=== PATIENT | female | born 1930 | race Hispanic/Latino ===

== ENCOUNTER 2018-09-11 15:49 | Emergency (ER) | payer MEDICARE ==
[2018-09-11] MEDS ORDERED: Sodium Chloride 0.9% 1,000 ML ONE (16:21)
[2018-09-11 16:40] LABS: ALT (SGPT) 18 U/L (8-55); AST (SGOT) 21 U/L (5-34); Albumin 3.8 g/dL (3.4-4.8); Alkaline Phosphatase 100 U/L (40-150); Anion Gap 12 mmol/L (10-20); BUN (Urea Nitrogen) 16 mg/dL (9.8-20.1); Calc. Creatinine Clearance 0 mL/min (70-130); Calcium 9.3 mg/dL (7.8-10.44); Carbon Dioxide 25 mmol/L (23-31); Chloride 101 mmol/L (98-107); Estimated GFR-MDRD 76; Glucose 100 mg/dL (83-110); Potassium 3.3 mmol/L (3.5-5.1); Protein, Total 5.8 g/dL (6.0-8.3); Sodium 135 mmol/L (136-145)
[2018-09-11 16:42] LABS: Acetaminophen Less than 6.0 mcg/mL (10.0-30.0); Alcohol Less than 10 mg/dL (Less than 10); Salicylate Less than 8.0 mg/dL (15.0-30.0)
--- NOTE | 2018-09-11 17:01 | CT ---
CT HEAD NONCONTRAST 09/11/18 HISTORY: Altered mental status. COMPARISON: 08/12/03. FINDINGS: There is no evidence of acute intracranial hemorrhage or infarct. Diffuse cortical atrophy and chroni c ischemic small vessel disease are again demonstrated. Dystrophic calcification at each basal gangli a. There is no mass effect or shift of midline structures. IMPRESSION: Chronic type findings. No acute intracranial abnormalities are demonstrated. POS: [facility]
[2018-09-11 17:05] LABS: Hemoglobin 10.4 g/dL (12.0-16.0); MDiff Complete? YES; Mean Corpuscular HGB CONC 31.8 g/dL (32.0-36.0); Mean Corpuscular Hemoglobin 27.8 pg (27.0-31.0); Mean Corpuscular Volume 87.5 fL (78.0-98.0); Mean Platelet Volume 12.4 fL (7.4-10.4); Platelet Count 63 thou/uL (130-400); RBC Distribution Width 16.2 % (11.5-14.5); Red Blood Cell (RBC) Count 3.73 mill/uL (4.20-5.40); White Blood Cell (WBC) Count 5.6 thou/uL (4.8-10.8)
[2018-09-11 17:06] LABS: Anisocytosis SLIGHT = 6-15 cells (100X) (0-5/hpf); Band 1 % (5-11); Hypochromia SLIGHT = 6-15 cells (100X) (0-5/hpf); Lymphocytes 26 % (21-51); Monocytes 12 % (0-10); Neutrophil 61 % (42-75); Platelet Morphology Comment Appears Decreased
--- NOTE | 2018-09-11 17:32 | RAD ---
CHEST ONE VIEW: 09/11/18 HISTORY: Altered mental status. COMPARISON: 08/07/17. FINDINGS: Normal cardiac silhouette. The pulmonary vessels and hilum are normal. Pleural and parenchymal change in the right lung base. Adequate aeration of the upper lungs. No pneumothorax or osseous abnormaliti es. IMPRESSION: Right sided pleural effusion with adjacent parenchymal changes. Continued surveillance is recommended . POS: [facility]
[2018-09-11 18:11] LABS: Bilirubin Small (Negative); Blood, Urine Moderate (Negative); Clarity Clear (Clear); Glucose, Urine (Dipstick) Negative (Negative); Leukocyte Negative (Negative); Nitrite Negative (Negative); Protein, Urine (Dipstick) 100 mg/dL (Neg-Trace); Specific Gravity, Urine 1.015 (1.005-1.030)
[2018-09-11 18:20] LABS: Bacteria/HPF Rare-Few HPF (None Seen); Other Microscopic Description NO; Squamous Epithelial None Seen HPF (0-3); WBC/HPF 0-3 HPF (0-3)
== END 2018-09-11 18:47 | disposition short-term general hospital (02) ==
LOC: NAV ERS 15:49
DX: I48.91 Unspecified atrial fibrillation (principal); J90 Pleural effusion, not elsewhere classified; E03.9 Hypothyroidism, unspecified; I10 Essential (primary) hypertension; Z79.899 Other long term (current) drug therapy
CPT/HCPCS: 51702; 70450; 71045; 80053; 80307; 81003; 81015; 83605; 83735; 83880; 84484; 85025; 87086; 93005; 94760; 96360; J7050

== ENCOUNTER 2018-09-17 17:26 | Inpatient (IN) | payer MEDICARE ==
[2018-09-17] MEDS ORDERED: Acetaminophen 325 MG TAB PO PRN (17:50)
[2018-09-17] MEDS ORDERED: Ondansetron ODT 4 MG TAB PO PRN (17:50)
[2018-09-17] MEDS ORDERED: Guaifenesin DM 100-10/5 ML UDCUP PO PRN (17:51)
[2018-09-17] MEDS ORDERED: Eucerin (Mineral Oil/Petrolatum,White) 30 gm Jar TOP PRN (17:51)
[2018-09-17] MEDS ORDERED: Cefepime 2 GM VIAL IVPB SCH (21:00)
[2018-09-17] MEDS ORDERED: DESMOPRESSIN 0.1 MG PO SCH (21:00)
[2018-09-17] MEDS: Cefepime 2 GM in Sodium Chloride 0.9% 100 ML IVPB SCH (21:08)
[2018-09-17] MEDS: Metoprolol Tartrate 50 MG TAB PO SCH (21:09)
[2018-09-17] MEDS: Apixaban 2.5 MG TAB PO SCH (21:10)
[2018-09-17] MEDS: guaiFENesin/DM ER PO SCH (21:11)
--- NOTE | 2018-09-18 02:48 | HP ---
CHIEF COMPLAINT: Deconditioning. HISTORY OF PRESENT ILLNESS: The patient is an 88-year-old female with a past medical history of atrial fibrillation, hypertension, hypothyroidism, chronic lymphocytic leukemia, and anemia, who was recently admitted to [facility] for weakness. She was found to be in atrial fibrillation with rapid ventricular response. The patient has been several days in the hospital trying to control her heart rate. She has been hypotensive some throughout the stay which has made treating her with medication more difficult. Yesterday, she was noted to have some shortness of breath and chest x-ray revealed pleural effusion. She was given a low dose of IV Lasix and then became hypotensive, after that needed to receive a small fluid bolus. She was also started on cefepime for possible pneumonia and said she has been in the hospital for several days, it was considered community-acquired , and she began cefepime. The patient significantly deconditioned and was in baseline confusion. I saw her shortly after arriving to [place], and she did not recognize me as her doctor and did not know where she was or the date or time. The patient denies shortness of breath and cough, though she was coughing during the exam. It has been reported that the patient has had a poor appetite during the hospital stay, but she has been enrolling [employer]. PAST MEDICAL HISTORY: 1. Hypothyroidism. 2. Atrial fibrillation. 3. Hypertension. 4. CLL. PAST SURGICAL HISTORY: 1. Tonsillectomy. 2. Hysterectomy. FAMILY HISTORY: Son has hypertension. SOCIAL HISTORY: The patient lives at home, but does have home health a couple of times a week. She has no tobacco, alcohol, or drug use. ALLERGIES: NO KNOWN DRUG ALLERGIES. MEDICATIONS: 1. Eliquis 2.5 mg p.o. b.i.d. 2. Desmopressin 0.1 mg p.o. b.i.d. 3. Levothyroxine 88 mcg p.o. daily. 4. DuoNeb q.6 hours p.r.n. shortness of breath. 5. Cefepime 2 g IV q.12 hours. 6. Metoprolol Tartrate 100 mg p.o. b.i.d. REVIEW OF SYSTEMS: GENERAL: Fever and chills. HEENT: Eyes, negative for vision changes or eye pain. Negative for sore throat or rhinorrhea. LUNGS: Negative for shortness of breath, but positive for cough. CARDIOVASCULAR: Negative for chest pain or palpitations. Positive for history of atrial fibrillation with rapid ventricular response. GI: Negative for nausea, vomiting, and diarrhea. : Negative for dysuria or polyuria. MUSCULOSKELETAL: Positive for diffuse weakness, but no pain or swelling in joints. SKIN: Negative for rashes or lesions. PSYCHIATRIC: Positive for confusion, but denies anxiety. NEURO: Negative for syncope and seizure PHYSICAL EXAMINATION: VITAL SIGNS: Temperature 97.7, pulse 75, respiratory rate 20, O2 saturation 92 % on room air, blood pressure 110/55. GENERAL: The patient is awake, alert, and oriented to person only, and in no acute distress. HEENT: Eyes, pupils are equal, round, and reactive to light and accommodation. Extraocular muscles are intact. Oropharynx and nasopharynx without erythema or exudate. NECK: Supple without lymphadenopathy, thyromegaly, or bruits. CARDIOVASCULAR: Irregularly irregular rhythm without murmurs or rubs. LUNGS: Have some scattered crackles in bilateral bases with normal effort. No retractions. ABDOMEN: Soft, nontender, and nondistended with bowel sounds present. EXTREMITIES: There is no clubbing, cyanosis, or edema. MUSCULOSKELETAL: The patient does not cooperative with strength exam. NEUROLOGIC: Cranial nerves 2 through 12 are grossly intact. Deep tendon reflexes are 2/4. PSYCHIATRIC: The patient is confused and does not remember answers to questions. Even when redirected a few seconds later, she again forgets the answers to the questions. ASSESSMENT AND PLAN: 1. Generalized deconditioning: PT, OT, and ST will be consulted for patient's weakness and confusion. 2. Hospital-acquired pneumonia: We will continue cefepime. I will check the chest x-ray in the morning. We will have oxygen as needed. She will continue DuoNebs as well. 3. Atrial fibrillation: The patient will continue Eliquis for anticoagulation and metoprolol for rate control. 4. Hypertension: The patient is on metoprolol. We will continue to monitor blood pressure closely as she has been borderline hypotensive in the past 2 to 3 days. 5. Chronic lymphocytic leukemia: The patient's cancer treatment was stopped in the hospital as there was some concern that it was causing some of the patient's symptoms. This will be restarted once the patient is finished with her skilled stay and follows up with Oncology. 6. We will check CBC and BMP tomorrow morning. Job ID: [id number] MTDRoyal
[2018-09-18] MEDS: Levothyroxine Sodium 88 MCG TAB PO SCH (05:03)
[2018-09-18 05:28] LABS: #Eosinphils 0.1 thou/uL (0.0-0.7); #Lymphocytes 2.7 thou/uL (1.20-3.40); #Monocytes 0.6 thou/uL (0.11-0.59); %Basophils 0.5 % (0.0-1.0); %Eosinophils 0.6 % (0.0-10.0); %Lymphocytes 28.4 % (21.0-51.0); %Monocytes 6.6 % (0.0-10.0); %Neutrophils 63.9 % (42.0-75.0); Anisocytosis MODERATE=16-30 cells (100X) (0-5/hpf); Burr Cells SLIGHT = 2-5 cells (100X) (0-1/hpf); Hemoglobin 9.3 g/dL (12.0-16.0); Hypochromia SLIGHT = 6-15 cells (100X) (0-5/hpf); MDiff Complete? YES; Mean Corpuscular HGB CONC 31.2 g/dL (32.0-36.0); Mean Corpuscular Hemoglobin 28.2 pg (27.0-31.0); Mean Corpuscular Volume 90.5 fL (78.0-98.0); Ovalocytes SLIGHT = 2-5 cells (100X) (0-1/hpf); Platelet Count 156 thou/uL (130-400); Platelet Morphology Comment Appears Adequate; Poikilocytosis MODERATE=16-30 cells (100X) (0-5/hpf); RBC Distribution Width 20.1 % (11.5-14.5); Red Blood Cell (RBC) Count 3.29 mill/uL (4.20-5.40); White Blood Cell (WBC) Count 9.3 thou/uL (4.8-10.8)
[2018-09-18 05:40] LABS: Anion Gap 12 mmol/L (10-20); BUN (Urea Nitrogen) 55 mg/dL (9.8-20.1); Calc. Creatinine Clearance 43 mL/min (70-130); Calcium 8.5 mg/dL (7.8-10.44); Carbon Dioxide 20 mmol/L (23-31); Chloride 111 mmol/L (98-107); Estimated GFR-MDRD 63; Glucose 104 mg/dL (83-110); Potassium 3.5 mmol/L (3.5-5.1); Sodium 139 mmol/L (136-145)
[2018-09-18] MEDS ORDERED: Sodium Chloride 0.9% 10 ML ONE ×2 (07:40→20:20)
--- NOTE | 2018-09-18 08:45 | RAD ---
SINGLE VIEW OF THE CHEST: COMPARISON: 09/11/2018. HISTORY: Cough. FINDINGS: A single view of the chest shows a normal-size cardiomediastinal silhouette. There are small to mode rate bilateral pleural effusions. A calcified granuloma projects over the right thorax. Atheroscler otic calcifications are seen in the aorta. IMPRESSION: Bilateral pleural effusions. POS: [facility]
[2018-09-18] MEDS: Cefepime 2 GM in Sodium Chloride 0.9% 100 ML IVPB SCH ×2 (09:57→20:28)
[2018-09-18] MEDS: Metoprolol Tartrate 50 MG TAB PO SCH ×2 (09:58→20:31)
[2018-09-18] MEDS: Apixaban 2.5 MG TAB PO SCH ×2 (09:59→20:31)
[2018-09-18] MEDS: guaiFENesin/DM ER PO SCH ×2 (09:59→20:31)
[2018-09-18] MEDS ORDERED: Saccharomyces boulardii 250 MG CAP PO SCH (10:45)
[2018-09-18 10:58] LABS: Bilirubin Small (Negative); Blood, Urine Large (Negative); Clarity Cloudy (Clear); Glucose, Urine (Dipstick) Negative (Negative); Leukocyte Large (Negative); Nitrite Negative (Negative); Protein, Urine (Dipstick) 100 mg/dL (Neg-Trace); Urobilinogen 0.2 mg/dL (0.2-1.0)
--- NOTE | 2018-09-18 11:29 | PRG ---
DATE OF SERVICE: 09/18/2018 SUBJECTIVE: The patient is an 88-year-old female, who was transferred to [place] for rehabilitation following a hospitalization for AFib with RVR. The patient was significantly confused last night, but this morning, is able to recognize me. She states she rested well overnight. She was able to eat a little bit of breakfast , but her appetite is still poor. Nursing notes that her desmopressin was not on formulary and we need to try to get the family to bring in her medication. Per report, the patient's daughter is concerned about depression in her mom and is asking about starting a medication. OBJECTIVE: VITAL SIGNS: Temperature 97.8, pulse 94, respiration rate 20, O2 saturations 94% on room air, and blood pressure 112/68. GENERAL: The patient is awake, alert, and oriented to person, but not to place or time, and is in no acute distress. CARDIOVASCULAR: Irregularly irregular rhythm without murmurs. LUNGS: Clear to auscultation bilaterally without wheezing or rhonchi. ABDOMEN: Soft, nontender, and nondistended, with bowel sounds present. EXTREMITIES: There is no clubbing, cyanosis, or edema. PSYCHIATRIC: The patient does have some mild confusion today, though is a little bit clear than she was last night. LABORATORY DATA: 1. CBC: WBCs 9.3, hemoglobin 9.3, hematocrit 29.8, platelet count 156. 2. BMP: Sodium 139, potassium 3.5, chloride 111, bicarb 20, BUN 55, creatinine 0.85, glucose 104, calcium 8.5. 3. Chest x-ray demonstrates bilateral pleural effusions. ASSESSMENT AND PLAN: 1. Generalized deconditioning: The patient has been seen by Speech Therapy this morning and will be seen by PT and OT as well. 2. Atrial fibrillation with RVR: We will continue the metoprolol and monitor the patient's blood pressure and pulse. 3. Pleural effusions: The patient's blood pressure had not tolerated doses of Lasix when she was at the [facility]. Right now, her O2 saturations are stable and she is asymptomatic from these, so we will continue to monitor. 4. CLL: We will monitor blood counts periodically through this stay. The patient is not currently on any treatment as it was stopped by Oncology in the hospital until she follows up with them. 5. Hospital acquired pneumonia: We will continue cefepime. 6. Diarrhea: Nursing staff reports the patient has had 2 loose stools overnight. She has been on antibiotics and we will send stool for Clostridium difficile. We will also check a urinalysis as nursing has noted changes in her urine as well. 7. Possible depression: at this time the patient is still very confused. I would like to wait to start an antidepressant or anything sedation which could worsen her confusion. I have discussed this with her daughter, Luci, and she voiced understanding. Job ID: [id number] [facility]
[2018-09-18 11:36] LABS: Urine Culture Reflex No No
[2018-09-18 11:41] LABS: Bacteria/HPF Rare-Few HPF (None Seen); Other Microscopic Description NO; RBC/HPF GREATER THAN 50-TNTC HPF (0-3); Squamous Epithelial 0-3 HPF (0-3)
[2018-09-18] MEDS ORDERED: DESMOPRESSIN 0.1 MG PO SCH (13:45)
[2018-09-18] MEDS: DESMOPRESSIN 0.1 MG PO SCH (20:32)
[2018-09-19] MEDS: Levothyroxine Sodium 88 MCG TAB PO SCH (05:55)
[2018-09-19] MEDS: Cefepime 2 GM in Sodium Chloride 0.9% 100 ML IVPB SCH ×2 (09:09→20:52)
[2018-09-19] MEDS: Metoprolol Tartrate 50 MG TAB PO SCH ×2 (09:25→20:53)
[2018-09-19] MEDS: guaiFENesin/DM ER PO SCH ×2 (09:25→20:53)
[2018-09-19] MEDS: Apixaban 2.5 MG TAB PO SCH ×2 (09:26→20:53)
[2018-09-19] MEDS: Saccharomyces boulardii 250 MG CAP PO SCH (09:32)
[2018-09-19] MEDS: DESMOPRESSIN 0.1 MG PO SCH ×3 (09:35→20:51)
--- NOTE | 2018-09-19 16:18 | PRG ---
DATE OF SERVICE: 09/19/2018 SUBJECTIVE: The patient is an 88-year-old female, who was transferred to [place] for rehabilitation following a hospital stay for atrial fibrillation with RVR. The patient has continued to be confused and often thinks that she is anywhere other than a hospital. She has been asking for family members who have according to the daughter and [id number], who were at the bedside. The patient was able to recognize me today, but is still only oriented to person. OBJECTIVE: VITAL SIGNS: Temperature 97.6, pulse 87, respiratory rate 18, O2 saturation 95% on room air, and blood pressure 164/67. GENERAL: The patient is awake, alert, and oriented. No acute distress. CARDIOVASCULAR: Irregularly irregular rhythm without murmurs, gallops, or rubs. LUNGS: Clear to auscultation bilaterally without wheezing or rhonchi. ABDOMEN: Soft, nontender, and nondistended with bowel sounds present. EXTREMITIES: There is no clubbing, cyanosis, or edema. SKIN: The patient has scattered bruising for multiple blood draws over her hospitalization in the past week. PSYCHIATRIC: The patient is alert and oriented to person only, but pleasantly confused. LABORATORY DATA: 1. Urinalysis yesterday was significant for protein of 100, blood large, ketones 15, bilirubin small, leukocyte esterase large, wbc's 11 to 20, and rare to few bacteria. 2. Urine culture shows no growth to date. ASSESSMENT AND PLAN: 1. Generalized deconditioning: The patient will continue therapy to help improve strength. 2. Atrial fibrillation with rapid ventricular response: The patient is currently rate controlled with metoprolol. Blood pressures were stable. We will continue to monitor. 3. Confusion: I think the patient likely has some dementia and had a significant worsening of her baseline with a recent hospitalization. I have discussed this with the family in detail and have discussed that it may take some time for her to show cognitive improvement, and we may not get back to her baseline prior to the hospital stay. They both voiced their understanding of this. At bedside was her daughter, Stephanie, and I believe her [id number], Chelsea. 4. Pleural effusion: O2 saturations are stable and the patient is asymptomatic. We will continue to monitor these. 5. Chronic lymphoid leukemia: I will repeat labs to monitor her blood count. 6. Hospital-acquired pneumonia: The patient appears to be resolved from a pneumonia standpoint. We will discontinue her cefepime at this time. 7. Diarrhea: No stool study was obtained. The patient's diarrhea and loose stools have stopped. We will monitor to see if she has additional loose stools and if so, we will send for Clostridium difficile as she has been on antibiotics. 8. Decreased appetite: We will check BMP to monitor her electrolytes and kidney function with her decreased appetite. We talked about the importance of family encouraging her to eat when they are eat and drink, and I have discussed this with staff as well. Job ID: [id number]
[2018-09-19] MEDS ORDERED: Sodium Chloride 0.9% 10 ML ONE (20:45)
[2018-09-20] MEDS: Levothyroxine Sodium 88 MCG TAB PO SCH (05:20)
[2018-09-20 05:36] LABS: #Basophils 0.1 thou/uL (0.0-0.2); #Eosinphils 0.1 thou/uL (0.0-0.7); #Lymphocytes 2.2 thou/uL (1.20-3.40); #Monocytes 0.6 thou/uL (0.11-0.59); #Neutrophils 5.2 thou/uL (1.40-6.50); %Basophils 0.7 % (0.0-1.0); %Eosinophils 0.8 % (0.0-10.0); %Lymphocytes 26.9 % (21.0-51.0); %Monocytes 7.1 % (0.0-10.0); %Neutrophils 64.4 % (42.0-75.0); Anisocytosis SLIGHT = 6-15 cells (100X) (0-5/hpf); Crenated RBC SLIGHT = 1-5 cells (100X) (None Seen); Hemoglobin 9.7 g/dL (12.0-16.0); MDiff Complete? YES; Mean Corpuscular HGB CONC 31.5 g/dL (32.0-36.0); Mean Corpuscular Hemoglobin 29.1 pg (27.0-31.0); Mean Corpuscular Volume 92.5 fL (78.0-98.0); Mean Platelet Volume 11.8 fL (7.4-10.4); Ovalocytes SLIGHT = 2-5 cells (100X) (0-1/hpf); Platelet Count 141 thou/uL (130-400); Platelet Morphology Comment Appears Adequate; RBC Distribution Width 23.4 % (11.5-14.5); Red Blood Cell (RBC) Count 3.34 mill/uL (4.20-5.40); White Blood Cell (WBC) Count 8.1 thou/uL (4.8-10.8)
[2018-09-20 05:51] LABS: Anion Gap 13 mmol/L (10-20); BUN (Urea Nitrogen) 50 mg/dL (9.8-20.1); Calc. Creatinine Clearance 0 mL/min (70-130); Calcium 8.6 mg/dL (7.8-10.44); Carbon Dioxide 17 mmol/L (23-31); Chloride 114 mmol/L (98-107); Estimated GFR-MDRD 70; Glucose 107 mg/dL (83-110); Potassium 3.3 mmol/L (3.5-5.1); Sodium 141 mmol/L (136-145)
[2018-09-20] MEDS: Cefepime 2 GM in Sodium Chloride 0.9% 100 ML IVPB SCH (08:10)
[2018-09-20] MEDS: Apixaban 2.5 MG TAB PO SCH ×2 (08:13→20:16)
[2018-09-20] MEDS: guaiFENesin/DM ER PO SCH ×2 (08:13→20:15)
[2018-09-20] MEDS: Metoprolol Tartrate 50 MG TAB PO SCH ×2 (08:14→20:16)
[2018-09-20] MEDS: DESMOPRESSIN 0.1 MG PO SCH ×2 (09:45→20:15)
[2018-09-20] MEDS: Saccharomyces boulardii 250 MG CAP PO SCH (09:45)
[2018-09-20] MEDS ORDERED: Potassium Chloride 20 MEQ TAB PO SCH (19:45)
[2018-09-21] MEDS: Levothyroxine Sodium 88 MCG TAB PO SCH (05:58)
[2018-09-21] MEDS: guaiFENesin/DM ER PO SCH ×2 (09:25→21:21)
[2018-09-21] MEDS: Saccharomyces boulardii 250 MG CAP PO SCH (09:25)
[2018-09-21] MEDS: Apixaban 2.5 MG TAB PO SCH ×2 (09:25→21:20)
[2018-09-21] MEDS: Metoprolol Tartrate 50 MG TAB PO SCH ×2 (09:25→21:20)
[2018-09-21] MEDS: DESMOPRESSIN 0.1 MG PO SCH ×2 (09:29→21:21)
--- NOTE | 2018-09-21 15:21 | PRG ---
DATE OF SERVICE: 09/21/2018 SUBJECTIVE: The patient is an 88-year-old female, who is at [facility] for rehabilitation following a hospitalization for atrial fibrillation. The patient is lying in bed, resting. She does open her eyes and recognizes me. Her lunch tray was being brought in when I came into the room. I asked her she wanted to eat and she said no. She does note that her appetite is poor and staff notes that she did not eat much for breakfast. OBJECTIVE: VITAL SIGNS: Temperature 97.4, pulse 78, respiratory rate 16, O2 saturation 94% on room air, and blood pressure 112/58. GENERAL: The patient is somewhat sleepy, but is easily arousable and is oriented to person. She is in no acute distress. CARDIOVASCULAR: The patient has an irregularly irregular rhythm without murmurs or rubs. LUNGS: Clear to auscultation bilaterally without wheezing or rhonchi. ABDOMEN: Soft, nontender, and nondistended with bowel sounds present. EXTREMITIES: There is no clubbing, cyanosis, or edema. LABORATORY DATA: 1. CBC: WBC is 8.1, hemoglobin 9.7, hematocrit 30.9, and platelet count 141. 2. BMP: Sodium 141, potassium 3.3, chloride 114, bicarbonate 17, BUN 50, creatinine 0.78, glucose 107, and calcium 8.6. 3. Procalcitonin 0.08. ASSESSMENT AND PLAN: 1. Generalized deconditioning: The patient's poor p.o. intake is likely contributing to her deconditioning. I still would like to try to avoid anything that could affect the patient's mentation, so we will try to start Megace at this time. She will continue therapy and I spoke with staff to try to help increase her to eat, and I do believe she will need encouragement and somebody at bedside encouraging her to eat. 2. Atrial fibrillation: The patient is currently rate controlled with metoprolol. Her blood pressures have stabilized. 3. Confusion: I do believe that lot of her confusion is due to dementia and some of them can be post-hospital delirium. We will continue to reorient as needed. 4. Pleural effusion: Oxygen saturations are stable at this time and the patient remains asymptomatic. 5. Chronic lymphoid leukemia: Blood counts are stable at this time. The patient is not currently receiving treatment as recommended by Oncology until she becomes strong enough and gets out of her skilled stay. 6. Hospital-acquired pneumonia: The patient's procalcitonin is now back to normal. We will discontinue her cefepime. 7. Hypokalemia: We are giving oral potassium to replace the potassium. We will recheck in the morning. Job ID: [id number]
[2018-09-21] MEDS ORDERED: Megestrol Acetate 400 MG/10 ML UDCUP PO SCH (18:00)
[2018-09-22] MEDS: Levothyroxine Sodium 88 MCG TAB PO SCH (05:33)
[2018-09-22 05:50] LABS: Anion Gap 11 mmol/L (10-20); BUN (Urea Nitrogen) 43 mg/dL (9.8-20.1); Calc. Creatinine Clearance 47 mL/min (70-130); Calcium 8.3 mg/dL (7.8-10.44); Carbon Dioxide 18 mmol/L (23-31); Chloride 115 mmol/L (98-107); Estimated GFR-MDRD 71; Glucose 87 mg/dL (83-110); Potassium 3.3 mmol/L (3.5-5.1); Sodium 141 mmol/L (136-145)
[2018-09-22] MEDS: Megestrol Acetate 400 MG/10 ML UDCUP PO SCH (09:06)
[2018-09-22] MEDS: Apixaban 2.5 MG TAB PO SCH ×2 (09:06→20:55)
[2018-09-22] MEDS: Saccharomyces boulardii 250 MG CAP PO SCH (09:06)
[2018-09-22] MEDS: DESMOPRESSIN 0.1 MG PO SCH ×2 (09:06→20:54)
[2018-09-22] MEDS: Citalopram 10 MG TAB PO SCH (09:06)
[2018-09-22] MEDS: Loratadine 10 MG TAB PO PRN (09:06)
[2018-09-22] MEDS: guaiFENesin/DM ER PO SCH ×2 (09:06→20:55)
[2018-09-22] MEDS: Metoprolol Tartrate 50 MG TAB PO SCH ×2 (09:06→20:55)
--- NOTE | 2018-09-22 09:44 | PRG ---
DATE OF SERVICE: 09/22/2018 SUBJECTIVE: The patient is an 88-year-old female, who is at [facility] for rehabilitation following a hospital stay for AFib with RVR. Megace was added yesterday, but she has not yet received a dose. It is due to start this morning. Overnight, the patient had systolic blood pressures in the 90s, so her nighttime dose of metoprolol was held. This morning, the patient is awake and alert, but still disoriented to person. She does state that she is hungry and she is sitting up eating breakfast during the exam. OBJECTIVE: VITAL SIGNS: Temperature 97.7, pulse 90, respiratory rate 16, O2 saturation 100% on room air, blood pressure 126/62. GENERAL: The patient is awake, alert, oriented to person, in no acute distress. CARDIOVASCULAR: Irregularly irregular rhythm without murmurs, gallops, or rubs. LUNGS: Clear to auscultation bilaterally without wheezing or rhonchi. ABDOMEN: Soft, nontender, nondistended with bowel sounds present. EXTREMITIES: There is no clubbing, cyanosis, or edema. NEUROLOGIC: Cranial nerves 2 through 12 are grossly intact with deep tendon reflexes 2/4. LABORATORY DATA: BMP: Sodium 141, potassium 3.3, chloride 115, bicarbonate 18, BUN 43, creatinine 0.77, glucose 87, and calcium 8.3. ASSESSMENT AND PLAN: 1. Generalized deconditioning: The patient will continue therapy and now I will try to assess the patient with therapy stat to see how she is progressing. 2. Decreased appetite: Megace was added yesterday and she will receive her first dose this morning. She is sitting up eating breakfast currently. 3. Hypokalemia: Potassium is 3.3 this morning. We will again replace the potassium and add a magnesium level on as well. 4. Atrial fibrillation: The patient's rate is currently controlled despite her nighttime metoprolol dose is being held. We will continue to monitor for this. She should receive her morning metoprolol. 5. Chronic lymphocytic leukemia. Blood counts have been stable and we will continue to monitor this periodically. 6. Dementia versus hospital delirium: As the patient does have confusion at baseline, I suspect she has some underlying dementia that has worsened with recent hospital stay. We will continue to monitor for clearing of mentation. Job ID: [id number]
[2018-09-23] MEDS: Levothyroxine Sodium 88 MCG TAB PO SCH (05:14)
[2018-09-23 05:56] LABS: Anion Gap 12 mmol/L (10-20); BUN (Urea Nitrogen) 41 mg/dL (9.8-20.1); Calc. Creatinine Clearance 45 mL/min (70-130); Calcium 8.5 mg/dL (7.8-10.44); Carbon Dioxide 18 mmol/L (23-31); Chloride 115 mmol/L (98-107); Estimated GFR-MDRD 68; Glucose 81 mg/dL (83-110); Potassium 3.1 mmol/L (3.5-5.1); Sodium 142 mmol/L (136-145)
[2018-09-23] MEDS: guaiFENesin/DM ER PO SCH ×3 (09:00→20:44)
[2018-09-23] MEDS: Megestrol Acetate 400 MG/10 ML UDCUP PO SCH (09:05)
[2018-09-23] MEDS: Apixaban 2.5 MG TAB PO SCH ×2 (09:06→20:43)
[2018-09-23] MEDS: Citalopram 10 MG TAB PO SCH (09:07)
[2018-09-23] MEDS: Metoprolol Tartrate 50 MG TAB PO SCH ×2 (09:07→20:43)
[2018-09-23] MEDS: DESMOPRESSIN 0.1 MG PO SCH ×2 (09:10→20:43)
[2018-09-23] MEDS: Saccharomyces boulardii 250 MG CAP PO SCH (09:11)
[2018-09-23] MEDS ORDERED: Potassium Chloride 20 MEQ TAB PO SCH (13:45)
--- NOTE | 2018-09-23 14:54 | PRG ---
DATE OF SERVICE: 09/23/2018 SUBJECTIVE: The patient is an 88-year-old female, who is at [facility] for rehabilitation following a hospital stay for AFib with RVR. The patient reportedly did eat better yesterday since starting on Megace. This morning, she remains confused, does not know where she is. Nursing has no concerns this morning. OBJECTIVE: VITAL SIGNS: Temperature 97.9, pulse 92, respiratory rate 18, O2 saturation 97% on room air, blood pressure 128/58. GENERAL: The patient is awake, in no acute distress. CARDIOVASCULAR: Irregularly irregular rhythm without murmurs or rubs. LUNGS: Clear to auscultation bilaterally without wheezing or rhonchi. ABDOMEN: Soft, nontender, nondistended with bowel sounds present. EXTREMITIES: There is no clubbing, cyanosis, or edema. PSYCHIATRIC: The patient is oriented only to person. LABORATORY DATA: BMP: Sodium 142, potassium 3.1, chloride 115, bicarb 18, BUN 41, creatinine 0.80, glucose 81, calcium 8.5, magnesium 2.0. ASSESSMENT AND PLAN: 1. Generalized deconditioning: The patient will continue working with therapy. 2. Poor appetite: Megace seems to be helping at least when she received it yesterday. We will continue to monitor her p.o. intake and encourage IV fluids as well. 3. Hypokalemia. The patient's potassium went down a little bit more this morning. We will again replace potassium daily. Her magnesium level was normal. 4. Atrial fibrillation: The patient's rate is controlled. We have hold her metoprolol dose last night due to hypotension. I have now added holding parameters to this. 5. Chronic lymphocytic leukemia. Blood counts have been stable and we will monitor periodically. 6. Dementia: I do believe the patient's confusion is due to dementia. I have discussed with nursing staff and they have not seen a significant improvement in her mentation. We will continue to reorient as needed. 7. Depression: SSRI was started yesterday and we will monitor her mood. Job ID: [id number] MTDD
[2018-09-24 05:41] LABS: Anion Gap 12 mmol/L (10-20); BUN (Urea Nitrogen) 41 mg/dL (9.8-20.1); Calc. Creatinine Clearance 45 mL/min (70-130); Calcium 8.3 mg/dL (7.8-10.44); Carbon Dioxide 17 mmol/L (23-31); Chloride 117 mmol/L (98-107); Estimated GFR-MDRD 68; Glucose 91 mg/dL (83-110); Potassium 3.5 mmol/L (3.5-5.1); Sodium 142 mmol/L (136-145)
[2018-09-24] MEDS: Levothyroxine Sodium 88 MCG TAB PO SCH (05:50)
[2018-09-24] MEDS: guaiFENesin/DM ER PO SCH ×2 (08:22→21:24)
[2018-09-24] MEDS: Megestrol Acetate 400 MG/10 ML UDCUP PO SCH (08:23)
[2018-09-24] MEDS: Metoprolol Tartrate 50 MG TAB PO SCH ×2 (08:23→21:24)
[2018-09-24] MEDS: Citalopram 10 MG TAB PO SCH (08:24)
[2018-09-24] MEDS: Potassium Chloride 20 MEQ TAB PO SCH (08:25)
[2018-09-24] MEDS: Apixaban 2.5 MG TAB PO SCH ×2 (08:26→21:22)
[2018-09-24] MEDS: Saccharomyces boulardii 250 MG CAP PO SCH (08:27)
[2018-09-24] MEDS: DESMOPRESSIN 0.1 MG PO SCH ×2 (08:27→21:52)
--- NOTE | 2018-09-24 09:38 | PRG ---
DATE OF SERVICE: 09/24/2018 SUBJECTIVE: The patient is an 88-year-old female, who is at [facility] for rehabilitation following a hospitalization for atrial fibrillation with RVR. The patient is sitting up in a chair this morning, awake and alert and eating a cracker. She denies any complaints. Nursing has no concerns overnight. OBJECTIVE: VITAL SIGNS: Temperature 97.8, pulse 88, respiratory rate 18, O2 saturation 93% on room air, and blood pressure 121/66. GENERAL: The patient is awake and in no acute distress. CARDIOVASCULAR: Irregularly irregular rhythm without murmurs, gallops, or rubs. LUNGS: Clear to ausculation bilaterally without wheezing or rhonchi. ABDOMEN: Soft, nontender, and nondistended with bowel sounds present. EXTREMITIES: No clubbing, cyanosis, or edema. PSYCHIATRIC: The patient is alert and oriented to person only. She does not recognize me as not able to know that I am a doctor and does not know where she is or what year it is. LABORATORY DATA: BNP: Sodium 142, potassium 3.5, chloride 117, bicarb 17, BUN 41, creatinine 0.80, glucose 91, calcium 8.3. ASSESSMENT AND PLAN: 1. Generalized deconditioning: The patient will continue therapy. She does maneuver just around her room with a walker. 2. Atrial fibrillation: The patient is rate controlled. She will continue metoprolol. 3. Poor appetite: The patient seems to be eating a little bit better in the past couple of days. 4. Hypokalemia: Potassium has improved this morning. We will continue daily potassium. 5. Chronic lymphocytic leukemia: Blood counts have been stable and we will repeat these in the next few days. 6. Dementia: We will continue to reorient the patient as needed. I have discussed making sure that the lights are on and the blinds are open during the day. I would like her to stay in a chair most of the day and not be sleeping to try to help with her orientation. 7. Depression: She continues on her SSRI. Job ID: [id number]
[2018-09-25] MEDS: Levothyroxine Sodium 88 MCG TAB PO SCH (05:34)
[2018-09-25] MEDS: DESMOPRESSIN 0.1 MG PO SCH ×2 (09:04→21:31)
[2018-09-25] MEDS: Saccharomyces boulardii 250 MG CAP PO SCH (09:04)
[2018-09-25] MEDS: Citalopram 10 MG TAB PO SCH (09:04)
[2018-09-25] MEDS: Megestrol Acetate 400 MG/10 ML UDCUP PO SCH (09:04)
[2018-09-25] MEDS: Potassium Chloride 20 MEQ TAB PO SCH (09:04)
[2018-09-25] MEDS: Metoprolol Tartrate 50 MG TAB PO SCH ×2 (09:04→21:30)
[2018-09-25] MEDS: Apixaban 2.5 MG TAB PO SCH ×2 (09:04→21:30)
[2018-09-25] MEDS: Loratadine 10 MG TAB PO PRN (09:04)
[2018-09-25] MEDS: guaiFENesin/DM ER PO SCH ×3 (09:05→21:30)
--- NOTE | 2018-09-25 11:06 | PRG ---
DATE OF SERVICE: 09/25/2018 SUBJECTIVE: The patient is an 88-year-old female, who is at [place] for rehabilitation. Nursing staff reports that the patient has had very poor p.o. intake despite trying medication for her appetite. They also note that she is occasionally refusing to get out of bed and she does not wish to go and work with physical therapy. They also note that she is incontinent of stool. OBJECTIVE: VITAL SIGNS: Temperature 97.9, pulse 85, respiratory rate 20, O2 saturation 95% on room air, and blood pressure 116/57. GENERAL: The patient is resting comfortably, in no acute distress. CARDIOVASCULAR: Irregularly irregular rhythm without murmurs, gallops, or rubs. LUNGS: Clear to auscultation bilaterally without wheezing or rhonchi. ABDOMEN: Soft, nontender, nondistended. Bowel sounds present. EXTREMITIES: There is no clubbing, cyanosis, or edema. PSYCHIATRIC: The patient is oriented only to person. She told me that Seymour Rooney is the president and said it is in the 1980s. ASSESSMENT AND PLAN: 1. Generalized deconditioning: We will try to coordinate with Physical Therapy to see how the patient is doing and if she is still progressing. 2. Atrial fibrillation: The patient remains rate controlled on her metoprolol. 3. Poor appetite: Her appetite seems to wax and wane, but overall she is having a very little intake. 4. Hypokalemia: We will continue to monitor potassium. 5. Chronic lymphocytic leukemia: Blood counts have been stable. We will repeat a CBC on Friday. 6. Dementia: I have had a long discussion with the patient's daughter, Luci, this morning regarding her progress and our concerns that she is not eating very well and she does not appear to be significantly improving over the past week. The patient's daughter states that she has noticed an improvement in her mentation from between her time in [place] versus in [place]. She understands that she is not eating very much. We discussed that if she continues to not eat very much, we may have to consider hospice, but she does not appear ready for that decision at this time. We discussed that if the patient stops progressing with therapy, we will need to discharge the patient home and I do not feel that the patient is safe to go home by herself, so we will need 24-hour care. I have spoken with the caser in, [place], about helping the family with different resources for sitters and will probably be arranging home health for her on discharge. I was able to speak with OT who said they are seeing some improvement. We will continue to monitor her progress. The patient did refuse to work with therapy this afternoon. 7. Depression: She continues on an SSRI. Job ID: [id number] MTDD
[2018-09-26] MEDS: Levothyroxine Sodium 88 MCG TAB PO SCH (05:40)
[2018-09-26] MEDS: Megestrol Acetate 400 MG/10 ML UDCUP PO SCH (08:31)
[2018-09-26] MEDS: DESMOPRESSIN 0.1 MG PO SCH ×2 (08:31→21:36)
[2018-09-26] MEDS: Potassium Chloride 20 MEQ TAB PO SCH (08:31)
[2018-09-26] MEDS: guaiFENesin/DM ER PO SCH (08:31)
[2018-09-26] MEDS: Apixaban 2.5 MG TAB PO SCH ×2 (08:31→21:37)
[2018-09-26] MEDS: Citalopram 10 MG TAB PO SCH (08:32)
[2018-09-26] MEDS: Saccharomyces boulardii 250 MG CAP PO SCH (08:32)
[2018-09-26] MEDS: Metoprolol Tartrate 50 MG TAB PO SCH ×2 (08:32→21:36)
[2018-09-27] MEDS: Levothyroxine Sodium 88 MCG TAB PO SCH (05:42)
[2018-09-27] MEDS: Metoprolol Tartrate 50 MG TAB PO SCH ×2 (08:47→21:33)
[2018-09-27] MEDS: Apixaban 2.5 MG TAB PO SCH ×2 (08:47→21:32)
[2018-09-27] MEDS: Potassium Chloride 20 MEQ TAB PO SCH (08:47)
[2018-09-27] MEDS: DESMOPRESSIN 0.1 MG PO SCH ×2 (08:47→21:33)
[2018-09-27] MEDS: Megestrol Acetate 400 MG/10 ML UDCUP PO SCH (08:47)
[2018-09-27] MEDS: Citalopram 10 MG TAB PO SCH (08:47)
[2018-09-27] MEDS ORDERED: Loperamide HCl 2 MG CAP PO PRN (17:20)
--- NOTE | 2018-09-27 17:50 | PRG ---
DATE OF SERVICE: 09/27/2018 SUBJECTIVE: The patient is an 88-year-old female, who is at [place] for rehabilitation following a hospital stay for atrial fibrillation with RVR. The patient is sitting up in the chair this morning when asking to lie back down in bed. She reports she slept most of the day yesterday and all night long. She is only eating about 25% of her total food for the day. She is having a couple of loose stools that seem to be more consistent with kind of Ensure-induced diarrhea. She has had no signs of infection. No fever, chills, abdominal pain. OBJECTIVE: VITAL SIGNS: Temp 97.1, pulse 99, respiratory rate 18, O2 saturation 96% on room air, blood pressure 133/60. GENERAL: The patient is awake, alert, oriented to person only, and in no acute distress. CARDIOVASCULAR: Irregularly irregular rhythm without murmurs, gallops, or rubs. LUNGS: Clear to auscultation bilaterally without wheezing or rhonchi. ABDOMEN: Soft, nontender, nondistended with bowel sounds present. EXTREMITIES: There is no clubbing, cyanosis, or edema. Psychiatric: The patient is still confused. She does not knew where she is, who I am, why she is in the hospital. ASSESSMENT AND PLAN: 1. Generalized deconditioning: The patient will continue therapy. She has been approved for another week for insurance. We will monitor her this week to see how much progress she makes. I have spoken with the patient's daughter on Friday regarding her being able to return home by herself and she will likely need 24- hour care. 2. Atrial fibrillation: The patient remains rate controlled. Her nighttime dose of metoprolol has been held the past several days, because of borderline low blood pressures. We will continue to monitor this. 3. CLL: I will repeat a CBC and BMP tomorrow morning. She is not currently on treatment as this was stopped during a recent hospitalization. 4. Dementia: The patient's mentation appears to be at her new baseline. Reportedly, she has more in-depth conversations with the family in the afternoons. Job ID: [id number] [facility]
[2018-09-27 18:05] VITALS: BMI 19.5
[2018-09-28 06:09] LABS: Anion Gap 10 mmol/L (10-20); BUN (Urea Nitrogen) 36 mg/dL (9.8-20.1); Calc. Creatinine Clearance 44 mL/min (70-130); Calcium 8.3 mg/dL (7.8-10.44); Carbon Dioxide 16 mmol/L (23-31); Chloride 119 mmol/L (98-107); Estimated GFR-MDRD 73; Glucose 83 mg/dL (83-110); Potassium 4.2 mmol/L (3.5-5.1); Sodium 141 mmol/L (136-145)
[2018-09-28 06:17] LABS: Mean Corpuscular HGB CONC 29.3 g/dL (32.0-36.0); Mean Corpuscular Hemoglobin 28.4 pg (27.0-31.0); Mean Corpuscular Volume 97.1 fL (78.0-98.0); Mean Platelet Volume 9.7 fL (7.4-10.4); Platelet Count 100 thou/uL (130-400); RBC Distribution Width 22.4 % (11.5-14.5); White Blood Cell (WBC) Count 6.8 thou/uL (4.8-10.8)
[2018-09-28] MEDS: Levothyroxine Sodium 88 MCG TAB PO SCH (06:17)
[2018-09-28 06:19] LABS: Anisocytosis SLIGHT = 6-15 cells (100X) (0-5/hpf); Hypochromia SLIGHT = 6-15 cells (100X) (0-5/hpf); Lymphocytes 20 % (21-51); MDiff Complete? YES; Monocytes 7 % (0-10); Neutrophil 73 % (42-75); Platelet Morphology Comment Appears Adequate
[2018-09-28] MEDS: DESMOPRESSIN 0.1 MG PO SCH ×2 (08:37→20:51)
[2018-09-28] MEDS: Megestrol Acetate 400 MG/10 ML UDCUP PO SCH (08:38)
[2018-09-28] MEDS: Metoprolol Tartrate 50 MG TAB PO SCH ×2 (08:40→20:50)
[2018-09-28] MEDS: Apixaban 2.5 MG TAB PO SCH ×2 (08:40→20:50)
[2018-09-28] MEDS: Citalopram 10 MG TAB PO SCH (08:40)
[2018-09-28] MEDS: Potassium Chloride 20 MEQ TAB PO SCH (08:41)
--- NOTE | 2018-09-28 10:01 | PRG ---
DATE OF SERVICE: 09/28/2018 SUBJECTIVE: The patient is an 88-year-old female who is at [place] for rehabilitation following a prolonged hospital stay. The patient is sitting up in a chair and is eating some of her breakfast. It appears she is eating part of a grapefruit, about a quarter of a piece of toast, and some of her sausage. The patient's daughter states she is trying to get her to take her medications and this is a slow process. This morning, the patient does recognize me and was able to call me by name. OBJECTIVE: VITAL SIGNS: Temperature 97.5, pulse 98, respiration rate 18, O2 saturation 95% on room air, and blood pressure 116/68. GENERAL: The patient is awake, alert, oriented to person, and in no acute distress. CARDIOVASCULAR: Irregularly irregular rhythm without murmurs or rubs. LUNGS: Clear to auscultation bilaterally without wheezing or rhonchi. ABDOMEN: Soft, nontender, and nondistended with bowel sounds present. EXTREMITIES: There is no clubbing, cyanosis, or edema. LABORATORY DATA: CBC: WBC 6.8, hemoglobin 10.0, hematocrit 34.0, and platelet count 100. BMP: Sodium 141, potassium 4.2, chloride 119, bicarb 16, BUN 36, creatinine 0.75, glucose 83, and calcium 8.3. ASSESSMENT AND PLAN: 1. Generalized deconditioning: The patient will continue therapy this week. We are all monitoring to see improvement in both her mentation and her strength. 2. Atrial fibrillation: The patient is currently rate controlled with her metoprolol. 3. Chronic lymphocytic leukemia: The patient's hemoglobin is stable. Platelets have decreased and we will monitor this. 4. Hypokalemia: The patient's potassium is improved with her daily potassium. 5. Poor appetite: I will continue to monitor this. She is on Megace. 6. Depression: The patient will continue citalopram. Job ID: [id number]
[2018-09-29] MEDS: Levothyroxine Sodium 88 MCG TAB PO SCH (06:14)
[2018-09-29] MEDS: Metoprolol Tartrate 50 MG TAB PO SCH ×2 (08:41→21:13)
[2018-09-29] MEDS: Citalopram 10 MG TAB PO SCH (08:41)
[2018-09-29] MEDS: Megestrol Acetate 400 MG/10 ML UDCUP PO SCH (08:41)
[2018-09-29] MEDS: Apixaban 2.5 MG TAB PO SCH ×2 (08:41→21:13)
[2018-09-29] MEDS: Potassium Chloride 20 MEQ TAB PO SCH (08:41)
[2018-09-29] MEDS: DESMOPRESSIN 0.1 MG PO SCH ×2 (09:21→21:13)
--- NOTE | 2018-09-29 09:48 | PRG ---
DATE OF SERVICE: 09/29/2018 SUBJECTIVE: The patient is an 88-year-old female, here for rehabilitation. The patient is sitting up and only ate 3 or 4 bites of her breakfast. She has multiple different things on her plate that we are trying to attempt her to eat, but she states that she has had enough. The patient did take her medications this morning. She denies complaints. OBJECTIVE: VITAL SIGNS: Temperature 98.2, pulse 84, respiration rate 20, O2 saturation 95% on room air, and blood pressure 122/68. GENERAL: The patient is awake, alert, and oriented to person and in no acute distress. CARDIOVASCULAR: Irregularly irregular rhythm without murmurs, gallops, or rubs. LUNGS: Clear to auscultation bilaterally without wheezing or rhonchi. ABDOMEN: Soft, nontender, and nondistended with bowel sounds present. EXTREMITIES: There is no clubbing, cyanosis, or edema. ASSESSMENT AND PLAN: 1. Generalized deconditioning: The patient will continue working with therapy. We continue to encourage her to work with them both in the morning and in the afternoons, but she frequently refuses her afternoon therapy. 2. Atrial fibrillation: The patient is rate controlled. We will continue her metoprolol. 3. Decreased appetite: The patient's appetite remains poor despite being on Megace. We will continue to monitor her p.o. intake. 4. Chronic lymphocytic leukemia: The patient is off all medications for this. Her blood counts are stable. 5. Depression: We will continue the patient's citalopram. Job ID: [id number]
[2018-09-30] MEDS: Levothyroxine Sodium 88 MCG TAB PO SCH (06:17)
[2018-09-30] MEDS: DESMOPRESSIN 0.1 MG PO SCH ×2 (08:51→20:55)
[2018-09-30] MEDS: Megestrol Acetate 400 MG/10 ML UDCUP PO SCH (08:51)
[2018-09-30] MEDS: Potassium Chloride 20 MEQ TAB PO SCH (08:51)
[2018-09-30] MEDS: Metoprolol Tartrate 50 MG TAB PO SCH ×2 (08:51→20:53)
[2018-09-30] MEDS: Citalopram 10 MG TAB PO SCH (08:51)
[2018-09-30] MEDS: Apixaban 2.5 MG TAB PO SCH ×2 (08:51→20:53)
--- NOTE | 2018-09-30 10:23 | PRG ---
DATE OF SERVICE: 09/30/2018 SUBJECTIVE: The patient is an 88-year-old female who is at [place] for rehabilitation following a hospital stay for atrial fibrillation. The patient is sitting up on the side of the bed and reportedly ate a little bit more for breakfast than her normal 3 or 4 bites. She was able to take her medication and I witnessed her brushing her teeth. She denies any complaints this morning including shortness of breath, abdominal pain, and joint pain. I was able to speak with the physical therapy team as well as nursing regarding the patient's progress and she is beginning to plateau with therapy. There was a care plan meeting yesterday that I believe that the daughter called in to and they were firm on recommendation of needing 24 hour care if she goes home versus a long-term care facility, and I believe that they were thinking about this at that time. OBJECTIVE: VITAL SIGNS: Temp 97.9, pulse 81, respiration rate 18, O2 saturation 96% on room air, blood pressure 123/59. GENERAL: The patient is awake, alert, oriented, and in no acute distress. CARDIOVASCULAR: Irregularly irregular rhythm without murmurs, gallops, or rubs. LUNGS: Clear to auscultation bilaterally without wheezing or rhonchi. The patient has good air entry in her bases this morning. ABDOMEN: Soft, nontender to palpation with bowel sounds present. EXTREMITIES: There is no clubbing or cyanosis. The patient may have trace edema that is nonpitting in her feet. ASSESSMENT AND PLAN: 1. Generalized deconditioning: The patient continues to work with therapy, however, she is beginning to plateau. She is also refusing therapy some in the afternoons so we have discussed this with family members. 2. Atrial fibrillation: The patient remains rate controlled. Her blood pressure is stable. 3. Dementia: The patient is oriented to person only. She is able to answer simple questions appropriately. She does have baseline confusion and she seems to have improved to her maximum potential at this point. 4. Hypokalemia: Potassium is improved. We will recheck labs tomorrow. 5. Chronic lymphocytic leukemia: The patient has been stable. Recent blood counts were stable. She remains off medication at this time per Oncology's recommendations. Job ID: [id number]
[2018-10-01] MEDS: Levothyroxine Sodium 88 MCG TAB PO SCH (06:25)
[2018-10-01] MEDS: Metoprolol Tartrate 50 MG TAB PO SCH ×2 (08:56→21:07)
[2018-10-01] MEDS: Potassium Chloride 20 MEQ TAB PO SCH (08:56)
[2018-10-01] MEDS: Citalopram 10 MG TAB PO SCH (08:56)
[2018-10-01] MEDS: DESMOPRESSIN 0.1 MG PO SCH ×2 (08:56→21:07)
[2018-10-01] MEDS: Apixaban 2.5 MG TAB PO SCH ×2 (08:56→21:07)
[2018-10-01] MEDS: Megestrol Acetate 400 MG/10 ML UDCUP PO SCH (08:56)
[2018-10-01] MEDS ORDERED: Furosemide 20 MG TAB PO SCH (09:15)
--- NOTE | 2018-10-01 09:53 | PRG ---
DATE OF SERVICE: 10/01/2018 SUBJECTIVE: The patient is an 88-year-old female here for rehabilitation following a hospital stay for atrial fibrillation. The patient this morning has already refused to work with physical therapy. When I tried to get her up walking or even just work with her on the side of the bed, she is not willing to work with it this morning. The patient's nurse is trying to get her to take her medications this morning. OBJECTIVE: VITAL SIGNS: Temp 97.9, pulse 80, respiration rate 22, O2 saturation 97% on room air, blood pressure 129/62. GENERAL: The patient is awake, alert, oriented, in no acute distress. CARDIOVASCULAR: Irregularly irregular rhythm without murmurs, gallops, or rubs. LUNGS: Clear to auscultation bilaterally without wheezing or rhonchi. ABDOMEN: Soft, nontender, nondistended. Bowel sounds present. EXTREMITIES: There is 1+ pitting edema in bilateral lower extremities to the knee. PSYCHIATRIC: The patient displays a flat affect. ASSESSMENT AND PLAN: 1. Generalized deconditioning: The patient again refused to work with therapy yesterday afternoon and is refusing this morning. I believe that they will try again later today. I spoke with the patient's nurse who states family is trying to decide between home with home health and sitters. They were given a list of potential sitters. The patient is nearing her discharge date as she is plateauing with therapy and very often refusing to work with therapy. 2. Atrial fibrillation: The patient remains rate controlled with metoprolol. 3. Lower extremity edema: We will give a one time dose of p.o. Lasix to see if this helps with her lower extremity edema. 4. Chronic lymphocytic leukemia: We will repeat a CBC tomorrow morning. 5. Depression: We will continue citalopram. 6. Poor appetite: The patient is on Megace and we are continuing this. Job ID: [id number]
[2018-10-02] MEDS: Levothyroxine Sodium 88 MCG TAB PO SCH (05:09)
[2018-10-02 05:34] LABS: #Eosinphils 0.1 thou/uL (0.0-0.7); #Lymphocytes 1.9 thou/uL (1.20-3.40); #Monocytes 0.3 thou/uL (0.11-0.59); #Neutrophils 2.5 thou/uL (1.40-6.50); %Basophils 0.6 % (0.0-1.0); %Eosinophils 1.7 % (0.0-10.0); %Lymphocytes 39.8 % (21.0-51.0); %Monocytes 5.6 % (0.0-10.0); %Neutrophils 52.2 % (42.0-75.0); Burr Cells SLIGHT = 2-5 cells (100X) (0-1/hpf); Hemoglobin 9.9 g/dL (12.0-16.0); Hypochromia SLIGHT = 6-15 cells (100X) (0-5/hpf); MDiff Complete? YES; Mean Corpuscular HGB CONC 29.1 g/dL (32.0-36.0); Mean Corpuscular Hemoglobin 28.4 pg (27.0-31.0); Mean Corpuscular Volume 97.6 fL (78.0-98.0); Mean Platelet Volume 9.6 fL (7.4-10.4); Microcytosis SLIGHT = 6-15 cells (100X) (0-5/hpf); Ovalocytes SLIGHT = 2-5 cells (100X) (0-1/hpf); Platelet Count 74 thou/uL (130-400); Platelet Morphology Comment Appears Decreased; RBC Distribution Width 22.3 % (11.5-14.5); Red Blood Cell (RBC) Count 3.49 mill/uL (4.20-5.40); White Blood Cell (WBC) Count 4.8 thou/uL (4.8-10.8)
[2018-10-02 05:40] LABS: Anion Gap 11 mmol/L (10-20); BUN (Urea Nitrogen) 30 mg/dL (9.8-20.1); Calc. Creatinine Clearance 39 mL/min (70-130); Calcium 8.3 mg/dL (7.8-10.44); Carbon Dioxide 20 mmol/L (23-31); Chloride 115 mmol/L (98-107); Estimated GFR-MDRD 63; Glucose 84 mg/dL (83-110); Potassium 4.4 mmol/L (3.5-5.1); Sodium 142 mmol/L (136-145)
[2018-10-02] MEDS ORDERED: Furosemide 20 MG TAB PO SCH (08:00)
--- NOTE | 2018-10-02 08:22 | PRG ---
DATE OF SERVICE: 10/02/2018 SUBJECTIVE: The patient is an 88-year-old female, who is at [place] for rehabilitation following a prolonged hospital stay. The patient has started to plateau with therapy and at times has refused therapy. Per report, the family has decided on placement for the patient at [facility]. I have spoken with the disease case manager rn, and she is going to help try to arrange that. The patient is safe for discharge at any time. The patient is awake and is being helped up out of bed to have breakfast. She denies any complaints this morning. OBJECTIVE: VITAL SIGNS: Temperature 98.1, pulse 90, respiratory rate 20, O2 saturation 98% on room air, blood pressure 128/60. GENERAL: The patient is awake, alert, and oriented, in no acute distress. CARDIOVASCULAR: Irregularly irregular rhythm without murmurs, gallops, or rubs. LUNGS: Clear to auscultation bilaterally without wheezing or rhonchi. ABDOMEN: Soft, nontender, and nondistended with bowel sounds present. EXTREMITIES: There is 1+ bilateral pitting edema to the knees. PSYCHIATRIC: The patient is alert and oriented to person only. LABORATORY DATA: 1. CBC: WBCs 4.8, hemoglobin 9.9, hematocrit 34.1, platelet count 74. 2. BMP: Sodium 142, potassium 4.4, chloride 115, bicarb 20, BUN 30, creatinine 0.85, glucose 84, calcium 8.3. ASSESSMENT AND PLAN: 1. Generalized deconditioning: The patient has plateaued with therapy and is ready to discharge. We are trying to arrange for placement at [facility]. 2. Atrial fibrillation: The patient is currently rate controlled with her dose of metoprolol. We will continue this. 3. Lower extremity edema: We will repeat a dose of Lasix today. 4. Thrombocytopenia: This is likely a result from her chronic lymphocytic leukemia. I will look for her medications to make certain there is nothing else that could be causing this. 5. Chronic lymphocytic leukemia: The patient is off all medication to treat her chronic lymphocytic leukemia as Oncology stops it until she was started after restart. I am not certain if she will be strong enough to restart this. 6. Poor appetite: The patient continues with [employer]. Job ID: [id number]
[2018-10-02] MEDS: Potassium Chloride 20 MEQ TAB PO SCH (08:24)
[2018-10-02] MEDS: Metoprolol Tartrate 50 MG TAB PO SCH ×2 (08:24→21:04)
[2018-10-02] MEDS: Apixaban 2.5 MG TAB PO SCH ×2 (08:25→21:04)
[2018-10-02] MEDS: Citalopram 10 MG TAB PO SCH (08:25)
[2018-10-02] MEDS: Megestrol Acetate 400 MG/10 ML UDCUP PO SCH (08:25)
[2018-10-02] MEDS: DESMOPRESSIN 0.1 MG PO SCH ×2 (08:26→21:03)
[2018-10-03] MEDS: Levothyroxine Sodium 88 MCG TAB PO SCH (05:31)
[2018-10-03] MEDS: Metoprolol Tartrate 50 MG TAB PO SCH ×2 (08:45→20:37)
[2018-10-03] MEDS: Megestrol Acetate 400 MG/10 ML UDCUP PO SCH (08:46)
[2018-10-03] MEDS: Citalopram 10 MG TAB PO SCH (08:48)
[2018-10-03] MEDS: Apixaban 2.5 MG TAB PO SCH ×2 (08:49→20:36)
[2018-10-03] MEDS: Potassium Chloride 20 MEQ TAB PO SCH (08:49)
[2018-10-03] MEDS: DESMOPRESSIN 0.1 MG PO SCH ×2 (08:57→20:36)
[2018-10-04] MEDS: Levothyroxine Sodium 88 MCG TAB PO SCH (05:40)
[2018-10-04] MEDS: Apixaban 2.5 MG TAB PO SCH ×2 (08:39→21:30)
[2018-10-04] MEDS: Citalopram 10 MG TAB PO SCH (08:39)
[2018-10-04] MEDS: Potassium Chloride 20 MEQ TAB PO SCH (08:39)
[2018-10-04] MEDS: Megestrol Acetate 400 MG/10 ML UDCUP PO SCH (08:40)
[2018-10-04] MEDS: DESMOPRESSIN 0.1 MG PO SCH ×2 (08:43→21:31)
[2018-10-04] MEDS: Metoprolol Tartrate 50 MG TAB PO SCH ×2 (08:43→21:31)
[2018-10-04] MEDS ORDERED: Furosemide 40 MG TAB PO SCH (09:30)
--- NOTE | 2018-10-04 10:34 | PRG ---
DATE OF SERVICE: 10/04/2018 SUBJECTIVE: The patient is doing well this morning. She had eaten 75% of her breakfast and taking her medications. She is sitting up in a chair, recognizes me and called me by name. OBJECTIVE: VITAL SIGNS: Temperature 97.4, pulse 92, respiratory rate 20, O2 saturation 94% on room air, and blood pressure 138/64. GENERAL: The patient is awake, alert, oriented, and in no acute distress. CARDIOVASCULAR: Irregularly irregular rhythm without murmurs, gallops, or rubs. LUNGS: Clear to auscultation bilaterally without wheezing or rhonchi. ABDOMEN: Soft, nontender, nondistended. Bowel sounds present. EXTREMITIES: There is 1+ pitting edema bilaterally to the knees. PSYCHIATRIC: The patient displays an appropriate mood and affect and is alert and oriented to person. ASSESSMENT AND PLAN: 1. Atrial fibrillation: The patient will continue metoprolol. We will monitor heart rate. 2. Generalized deconditioning: The patient has shown improvement with therapy, but we do believe she would benefit from additional care. We are working on arranging placement at [facility] currently. 3. Lower extremity edema: We will add Lasix. We have done several single courses of Lasix, but will add it back in daily to try to help with the edema. 4. Poor appetite: The patient has been started on Megace and her appetite does seem to be a little bit improved. 5. Thrombocytopenia: We will repeat CBC to monitor her platelets. I believe that this is due to her chronic lymphocytic leukemia, which is not currently being treated. 6. Chronic lymphocytic leukemia: The patient is off her chronic medication for this. Job ID: [id number]
[2018-10-05 05:32] LABS: Anisocytosis SLIGHT = 6-15 cells (100X) (0-5/hpf); Band 4 % (5-11); Crenated RBC SLIGHT = 1-5 cells (100X) (None Seen); Eosinophils 2 % (0-10); Hemoglobin 10.7 g/dL (12.0-16.0); Lymphocytes 48 % (21-51); MDiff Complete? YES; Mean Corpuscular HGB CONC 29.4 g/dL (32.0-36.0); Mean Corpuscular Hemoglobin 28.4 pg (27.0-31.0); Mean Corpuscular Volume 96.6 fL (78.0-98.0); Mean Platelet Volume 9.2 fL (7.4-10.4); Monocytes 9 % (0-10); Neutrophil 36 % (42-75); Ovalocytes SLIGHT = 2-5 cells (100X) (0-1/hpf); Platelet Count 84 thou/uL (130-400); Platelet Morphology Comment Appears Decreased; Poikilocytosis SLIGHT = 6-15 cells (100X) (0-5/hpf); RBC Distribution Width 21.1 % (11.5-14.5); Reactive Lymphocytes 1 % (0-10); Red Blood Cell (RBC) Count 3.76 mill/uL (4.20-5.40); White Blood Cell (WBC) Count 4.1 thou/uL (4.8-10.8)
[2018-10-05 05:38] LABS: Anion Gap 11 mmol/L (10-20); BUN (Urea Nitrogen) 25 mg/dL (9.8-20.1); Calc. Creatinine Clearance 42 mL/min (70-130); Calcium 8.6 mg/dL (7.8-10.44); Carbon Dioxide 21 mmol/L (23-31); Chloride 113 mmol/L (98-107); Estimated GFR-MDRD 68; Glucose 81 mg/dL (83-110); Potassium 4.1 mmol/L (3.5-5.1); Sodium 141 mmol/L (136-145)
[2018-10-05] MEDS: Levothyroxine Sodium 88 MCG TAB PO SCH (05:47)
[2018-10-05] MEDS: Furosemide 40 MG TAB PO SCH (08:25)
[2018-10-05] MEDS: Metoprolol Tartrate 50 MG TAB PO SCH ×2 (08:43→20:43)
[2018-10-05] MEDS: Apixaban 2.5 MG TAB PO SCH ×2 (08:44→20:43)
[2018-10-05] MEDS: Citalopram 10 MG TAB PO SCH (08:44)
[2018-10-05] MEDS: Potassium Chloride 20 MEQ TAB PO SCH (08:44)
[2018-10-05] MEDS: Megestrol Acetate 400 MG/10 ML UDCUP PO SCH (08:47)
[2018-10-05] MEDS: DESMOPRESSIN 0.1 MG PO SCH ×2 (09:14→20:43)
--- NOTE | 2018-10-05 09:56 | PRG ---
DATE OF SERVICE: 10/05/2018 SUBJECTIVE: The patient is sitting up, eating breakfast this morning. She has had approximately 85% of her breakfast. Her appetite does appear to be improving a little bit. The nurses note breakfast is her best meal. She does recognize me this morning and appears more alert. OBJECTIVE: VITAL SIGNS: Temp 97.9, pulse 98, respiration rate 20, O2 saturation 95% on room air, blood pressure 157/71. GENERAL: The patient is awake, and in no acute distress. CARDIOVASCULAR: Irregularly irregular rhythm without murmurs, gallops, or rubs. LUNGS: Clear to auscultation bilaterally without wheezing or rhonchi. ABDOMEN: Soft, nontender, nondistended with bowel sounds present. EXTREMITIES: There is still 1+ pitting edema bilaterally to the knees. PSYCHIATRIC: The patient is alert and oriented to person and place this morning. LABORATORY DATA: 1. CBC: WBCs 4.1, hemoglobin 10.7, hematocrit 36.3, platelet count 84. 2. BMP: Sodium 141, potassium 4.1, chloride 113, bicarb 21, BUN 25, creatinine 0.80, glucose 81, calcium 8.6. ASSESSMENT AND PLAN: 1. Generalized deconditioning: The patient is coming to the end of her skilled stay at the hospital. We are waiting to hear back on placement at [facility]. She is stable for discharge whenever she gets approval. 2. Atrial fibrillation: The patient remains rate controlled with metoprolol. We will continue to monitor this. 3. Thrombocytopenia: The patient's platelet counts are increased from the previous check, though they are still low. As discussed before, I do believe this is because of her chronic lymphocytic leukemia. 4. Chronic lymphocytic leukemia: The patient is not on treatment currently as she was deemed not strong enough for it at this point in time. We will continue to monitor. 5. Depression: Continue SSRI. 6. Lower extremity edema: Scheduled Lasix was started yesterday. We will continue to monitor her fluid intake. 7. I have called in the patient's desmopressin to the local pharmacy, I was notified last time at 7:00 p.m. that she was out, but the local pharmacies are already closed. We will try to get her restarted on this today. Job ID: [id number]
[2018-10-06] MEDS: Levothyroxine Sodium 88 MCG TAB PO SCH (05:06)
[2018-10-06 07:12] VITALS: BP 135/63; TEMP 97.7
[2018-10-06] MEDS: Potassium Chloride 20 MEQ TAB PO SCH (08:46)
[2018-10-06] MEDS: Furosemide 40 MG TAB PO SCH (08:46)
[2018-10-06] MEDS: Apixaban 2.5 MG TAB PO SCH (08:46)
[2018-10-06] MEDS: Citalopram 10 MG TAB PO SCH (08:47)
[2018-10-06] MEDS: Megestrol Acetate 400 MG/10 ML UDCUP PO SCH (08:47)
[2018-10-06] MEDS: Metoprolol Tartrate 50 MG TAB PO SCH (08:47)
[2018-10-06] MEDS: DESMOPRESSIN 0.1 MG PO SCH (08:48)
--- NOTE | 2018-10-07 03:36 | DIS ---
DATE OF ADMISSION: 09/17/2018 DATE OF DISCHARGE: 10/06/2018 DISCHARGE DIAGNOSES: 1. Atrial fibrillation. 2. Generalized deconditioning. 3. Chronic lymphocytic leukemia. 4. Lower extremity edema. 5. Thrombocytopenia. 6. Depression. HOSPITAL COURSE: The patient is an 88-year-old female who is admitted to the [facility] for rehabilitation following a prolonged hospital stay in [place] for AFib with RVR. Patient was also noted to have pneumonia and was treated with cefepime, which we continued for the first several days after she got [place]. The patient worked with Speech, Occupational, and Physical Therapy while down here. Her mentation is slowly started to improve and is now recognizing me and having more meaningful conversations with her family. Her appetite was very poor while here and at the request of the family, Megace was started. Patient has just recently begun eating a good breakfast, but the rest of the day, she still struggles at times with her appetite. Patient has developed some lower extremity edema, for which we started scheduled Lasix as well as potassium. The patient is sitting up more and I believe some of this is simply dependent edema. During the course of this hospitalization, we replaced her potassium and started scheduled potassium and has remained stable. In regard to her CLL, the patient is not currently on treatment as this was stopped during her [place] hospitalization. Regarding depression, we began an SSRI shortly after arriving here and mood appears stable. She has been cleared for discharge to [facility] to continue her rehab. DISCHARGE MEDICATIONS: 1. Tylenol 650 mg p.o. q.4 hours p.r.n. pain. 2. Eliquis 2.5 mg p.o. b.i.d. 3. Citalopram 10 mg p.o. daily. 4. Lasix 40 mg p.o. daily. 5. DuoNeb q.6 hours p.r.n. shortness of breath or wheezing. 6. Levothyroxine 88 mcg p.o. daily. 7. Imodium 2 mg p.o. p.r.n. diarrhea. 8. Claritin 10 mg p.o. daily p.r.n. 9. Megace 400 mg p.o. daily. 10. Metoprolol 100 mg p.o. b.i.d. 11. Potassium chloride 20 mEq p.o. q.a.m. DISPOSITION: 1. The patient will be discharged to [facility]. 2. Diet: Heart healthy. 3. Activity: Ad stiven. 4. Patient will be followed by myself at the nursing facility. 5. 35 minutes were spent arranging discharge. Job ID: [id number] [facility]TDD
== END 2018-10-06 12:40 | DRG 308 ==
LOC: NAV ACUTE 17:26
PROVIDERS: ADMIT Family Medicine; ATTEND Family Medicine
DX: I48.91 Unspecified atrial fibrillation (principal); J18.9 Pneumonia, unspecified organism; C91.10 Chronic lymphocytic leukemia of B-cell type not having achieved remission; J90 Pleural effusion, not elsewhere classified; Z68.1 Body mass index [BMI] 19.9 or less, adult; I10 Essential (primary) hypertension; R53.81 Other malaise; E03.9 Hypothyroidism, unspecified; D64.9 Anemia, unspecified; R19.7 Diarrhea, unspecified; R63.0 Anorexia; F03.90 Unspecified dementia, unspecified severity, without behavioral disturbance, psychotic disturbance, mood disturbance, and anxiety; E87.6 Hypokalemia; F32.9 Major depressive disorder, single episode, unspecified; R60.0 Localized edema; D69.6 Thrombocytopenia, unspecified; Z90.710 Acquired absence of both cervix and uterus; Z90.89 Acquired absence of other organs; Y95 Nosocomial condition
CPT/HCPCS: 36415; 71045; 80048; 81001; 83735; 84145; 85025; 87086; 87324; 87449; A4353; J0692; J7050

== ENCOUNTER 2018-10-11 16:15 | Emergency (ER) | payer MEDICARE ==
[2018-10-11] MEDS ORDERED: Sodium Chloride 0.9% 500 ML ONE (16:42)
[2018-10-11 17:03] LABS: #Eosinphils 0.2 thou/uL (0.0-0.7); #Lymphocytes 1.9 thou/uL (1.20-3.40); #Monocytes 0.2 thou/uL (0.11-0.59); #Neutrophils 2.5 thou/uL (1.40-6.50); %Basophils 0.6 % (0.0-1.0); %Eosinophils 3.8 % (0.0-10.0); %Lymphocytes 38.9 % (21.0-51.0); %Monocytes 3.9 % (0.0-10.0); %Neutrophils 52.8 % (42.0-75.0); Hemoglobin 10.8 g/dL (12.0-16.0); Mean Corpuscular HGB CONC 29.2 g/dL (32.0-36.0); Mean Corpuscular Hemoglobin 27.6 pg (27.0-31.0); Mean Corpuscular Volume 94.6 fL (78.0-98.0); Mean Platelet Volume 6.5 fL (7.4-10.4); Platelet Count 149 thou/uL (130-400); RBC Distribution Width 19.9 % (11.5-14.5); Red Blood Cell (RBC) Count 3.92 mill/uL (4.20-5.40); White Blood Cell (WBC) Count 4.8 thou/uL (4.8-10.8)
[2018-10-11 17:22] LABS: ALT (SGPT) 24 U/L (8-55); AST (SGOT) 20 U/L (5-34); Albumin 3.1 g/dL (3.4-4.8); Alkaline Phosphatase 103 U/L (40-150); Anion Gap 12 mmol/L (10-20); BUN (Urea Nitrogen) 42 mg/dL (9.8-20.1); Bilirubin, Total 0.6 mg/dL (0.2-1.2); Calc. Creatinine Clearance 0 mL/min (70-130); Carbon Dioxide 26 mmol/L (23-31); Chloride 105 mmol/L (98-107); Estimated GFR-MDRD 47; Glucose 119 mg/dL (83-110); Potassium 4.3 mmol/L (3.5-5.1); Protein, Total 5.1 g/dL (6.0-8.3); Sodium 139 mmol/L (136-145)
--- NOTE | 2018-10-11 17:53 | CT ---
CT BRAIN: 10/11/2018 PROVIDED CLINICAL HISTORY: Head injury, status post fall. COMPARISON: 09/11/2018 FINDINGS: The ventricular system is unchanged in size and morphology. There is no evidence for intracranial he morrhage or mass effect. The extracranial soft tissues and osseous structures demonstrate no acute f indings. IMPRESSION: No evidence for intracranial hemorrhage or mass effect. POS: DANITA
--- NOTE | 2018-10-11 18:09 | RAD ---
PORTABLE SEMIUPRIGHT FRONTAL CHEST RADIOGRAPH: 10/11/2018 HISTORY: Tachycardia. Trauma. COMPARISON: 09/18/2018 FINDINGS: Increased linear interstitial density noted bilaterally with pulmonary hyperinflation. Atherosclerot ic calcification of the aortic arch noted. No pneumothorax, lobar consolidation, or alveolar edema. Aeration within the lung bases has improved since the 09/18/2018 exam. IMPRESSION: No acute findings. POS: MARTA
[2018-10-11] MEDS ORDERED: Lidocaine 1% w/Epinephrine 1:100K 30 ML VIAL ONE (18:25)
== END 2018-10-11 20:16 ==
LOC: NAV ERS 16:15
DX: S01.01XA Laceration without foreign body of scalp, initial encounter (principal); I89.0 Lymphedema, not elsewhere classified; I10 Essential (primary) hypertension; I48.91 Unspecified atrial fibrillation; E03.9 Hypothyroidism, unspecified; Z79.899 Other long term (current) drug therapy; W18.30XA Fall on same level, unspecified, initial encounter
CPT/HCPCS: 12001; 36415; 70450; 71045; 80053; 83880; 84484; 85025; 93005; 96360; 96361; J2001; J7050